=== PATIENT | female | born 1985 | race Hispanic/Latino ===

== ENCOUNTER 2021-10-26 22:32 | Emergency (ER) | payer SELFPAY ==
[2021-10-26] MEDS ORDERED: HYDROcodone/Acetaminophen 10/325 mg Tablet ONE (22:47)
[2021-10-26] MEDS ORDERED: Doxycycline 100 MG CAP ONE (22:47)
[2021-10-26] MEDS ORDERED: Lidocaine 1% w/Epinephrine 1:100K 20 ML VIAL ONE (22:50)
[2021-10-26] MEDS ORDERED: Boostrix 0.5 ML (Tdap) VIAL ONE (23:07)
[2021-10-26] MEDS ORDERED: Ondansetron ODT 4 MG TAB ONE (23:25)
== END 2021-10-26 23:47 | disposition home or self-care (01) ==
LOC: BURERS 22:32
DX: L02.415 Cutaneous abscess of right lower limb (principal); F17.210 Nicotine dependence, cigarettes, uncomplicated
CPT/HCPCS: 10060; 90471; 90715; Q0162